=== PATIENT | female | born 1960 | race Caucasian/White ===

== ENCOUNTER → 2017-05-24 | Day surgery (SDC) | payer OTHER ==
[2017-05-24] VITALS (10 sets, daily range): BP systolic 105–130; BP diastolic 74–94; PULSE 86–95; RESP 13–22; O2SAT 92–97
[~2017-05-24] VITALS: Ht 162.6 cm; Wt 104.0 kg
[~2017-05-24] MED LIST: AMT50T PO; Atropine 0.4 mg/mL Inj IVPUSH PRN; CHOL10008 PO; EPHEDrine Sulfate 50 mg/mL Inj IVPUSH PRN; FLUO40CA PO; HYDROcodone-APAP 5-325 mg Tablet PO PRN; HYDROmorphone 1 mg/mL Inj IVPUSH PRN; LACT1CAP65 PO; LEVO137T2 PO; Labetalol 5 mg/mL 20 mL Inj IV PRN; Lactated Ringer's 1,000 ML IV ONE; Lactated Ringer's 1,000 ML IV SCH; Lactated Ringer's 500 ML IV PRN; MetoCLOpramide 5 mg/mL 2 mL Inj IVPUSH PRN; Ondansetron 2 mg/mL 2 mL Inj IVPUSH PRN; PRAM0.252 PO; Phenylephrine 10,000 mCg/mL Inj IVPUSH PRN; TIZA4CAP8 PO; fentaNYL-PF 50 mCg/mL 2 mL Inj IVPUSH PRN
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
--- NOTE | 2017-05-24 16:22 | PCM.ANEP1 ---
Post Anesthesia PACU Phase 1 Assessment Vital Signs Vital Signs Date Time Temp Pulse Resp B/P Pulse Ox O2 Delivery O2 Flow Rate FiO2 05/24/17 15:33 36.5 87 16 121/79 97 Room Air 05/24/17 13:27 92 14 107/74 94 Nasal Cannula 1 05/24/17 13:27 87 14 97 Nasal Cannula 1 05/24/17 13:25 86 13 106/76 96 Nasal Cannula 2 05/24/17 13:20 36.5 88 16 123/79 95 Nasal Cannula 2 05/24/17 13:15 88 17 105/78 94 Nasal Cannula 2 05/24/17 13:10 89 19 121/75 92 Room Air 05/24/17 13:05 95 22 128/74 94 Room Air 05/24/17 13:00 92 19 121/84 94 Room Air 05/24/17 12:54 36.6 93 17 126/87 94 Room Air 05/24/17 10:06 36.4 94 17 130/94 96 Room Air Anesthetic Administered: MAC Level of Alertness: Awake, talking ALVARADO's with Equal Strength: Yes Pain: No Nausea or Vomiting: No CV Function & Hydration Stable: Yes Airway Device: n/a Oxygen Delivery: Room Air Lungs: Clear to Auscultation, Normal Air Movement Dermatome Level: Full Sensation PACU Phase 2 Assessment Complications: No Follow up Care: N/A Patient Instructions Provided: N/A Yung Fortune MD May 24, 2017 16:22
--- NOTE | 2017-05-25 02:34 | OP ---
[address] [address] OPERATIVE REPORT PATIENT: BONILLA LR : 1960 MR#: [id number] ADMIT: 05/24/2017 JOB ID: [id number] DATE OF SURGERY: 05/24/2017 PREOPERATIVE DIAGNOSIS(ES): Left small finger proximal phalanx base fracture. POSTOPERATIVE DIAGNOSIS(ES): Left small finger proximal phalanx base fracture. PROCEDURE: Closed reduction, percutaneous pinning of the left small finger proximal phalanx base fracture. SURGEON: Morales Garrett DO. ANESTHESIA: General. BRIEF HISTORY: The patient is a pleasant 57-year-old female. Her legs gave out and she fell directly onto her left hand. She sustained a displaced small finger proximal phalanx base fracture. She states a closed reduction was attempted in an outlying facility and she was placed into a splint. Upon presentation, she demonstrated some mild malrotation, but a moderate amount of extension at the base of the proximal phalanx fracture. I discussed with the patient the risks, benefits, alternatives and indications to proceed with a closed reduction and percutaneous pinning versus open reduction, internal fixation of the small finger proximal phalanx base fracture. She understood the risks include, but not limited to, neurovascular injury, tendon injury, infection, failure of fixation, stiffness, persistent pain, all of which may require further intervention. Patient had all questions answered. Consent was signed and placed in the chart. PROCEDURE IN DETAIL: The patient was brought into the operative suite and placed supine on operative table. A surgical time-out was performed. Everybody in the room was in agreement. After appropriate anesthesia was obtained, traction was applied to the patient's left small finger. The radial and ulnar translation was next corrected and the finger flexed to correct the extension. This was followed by verification of the reduction under fluoroscopy. Next, two 0.035 inch K-wires were advanced across the collateral recess to the base of the small finger proximal phalanx and advanced in a cross pinning fashion across the fracture site to the proximal phalanx head. Multiple views under fluoroscopy were utilized to verify acceptable reduction following placement of the hardware. The wrist was extended bringing the fingers into passive flexion demonstrating no malrotation. The pins were then bent outside of the skin and cut short. The patient was then placed in a well-padded, well-molded ulnar gutter splint. ESTIMATED BLOOD LOSS: Less than 1 cc. COMPLICATIONS: None. DISPOSITION: The patient tolerated the procedure well. Anesthesia was reversed and the patient was transferred to PACU for recovery. IMPLANTS: Two 0.035 inch K-wires. POSTOPERATIVE PLAN: The patient will follow up in the office in two weeks for a wound recheck and repeat x-rays. In the meantime, within one week postop, I would like the patient to see an occupational therapist to have a hand-based ulnar gutter brace made. The brace stays on at all times except for when working on gentle range of motion as instructed by therapy. Pins will be removed in the office in four weeks.
== END | disposition home or self-care (01) ==
LOC: SAS 09:26
PROVIDERS: ATTEND Orthopaedic Surgery
DX: S62.617A Displaced fracture of proximal phalanx of left little finger, initial encounter for closed fracture (principal); I10 Essential (primary) hypertension; E03.9 Hypothyroidism, unspecified; F41.8 Other specified anxiety disorders; M48.02 Spinal stenosis, cervical region; M79.7 Fibromyalgia; M54.5 Low back pain; W18.39XA Other fall on same level, initial encounter; Y93.01 Activity, walking, marching and hiking; Y92.9 Unspecified place or not applicable; Y99.8 Other external cause status; Z87.891 Personal history of nicotine dependence
CPT/HCPCS: 26727; J1170; J7120